=== PATIENT | female | born 1980 | race Caucasian/White ===

== ENCOUNTER 2016-09-23 22:44 | Emergency (ER) | payer OTHER | END 2016-09-24 00:43 | disposition home or self-care (01) | LOC: ER 22:44 | DX: B34.9 Viral infection, unspecified (principal); F17.210 Nicotine dependence, cigarettes, uncomplicated; Z88.0 Allergy status to penicillin; Z91.040 Latex allergy status; Z98.51 Tubal ligation status | CPT/HCPCS: 36415; 96374 ==

== ENCOUNTER 2016-10-12 04:05 | Emergency (ER) | payer OTHER | END 2016-10-12 05:00 | disposition home or self-care (01) | LOC: ER 04:05 | DX: R51 Headache (principal); F17.210 Nicotine dependence, cigarettes, uncomplicated; Z91.040 Latex allergy status; Z88.0 Allergy status to penicillin | CPT/HCPCS: 96372; J1885 ==

== ENCOUNTER 2016-10-13 02:06 | Emergency (ER) | payer OTHER | END 2016-10-13 03:00 | disposition home or self-care (01) | LOC: ER 02:06 | DX: R51 Headache (principal); F17.210 Nicotine dependence, cigarettes, uncomplicated; Z88.0 Allergy status to penicillin; Z91.040 Latex allergy status | CPT/HCPCS: 96372; J1885 ==

== ENCOUNTER 2016-10-27 21:43 | Emergency (ER) | payer OTHER | END 2016-10-27 22:10 | disposition home or self-care (01) | LOC: ER 21:43 | DX: R19.7 Diarrhea, unspecified (principal); R11.0 Nausea; G43.909 Migraine, unspecified, not intractable, without status migrainosus; F17.210 Nicotine dependence, cigarettes, uncomplicated; Z90.49 Acquired absence of other specified parts of digestive tract; Z98.51 Tubal ligation status; Z88.0 Allergy status to penicillin; Z91.040 Latex allergy status ==

== ENCOUNTER 2016-11-02 16:40 | Emergency (ER) | payer OTHER | END 2016-11-02 17:30 | disposition home or self-care (01) | LOC: ER 16:40 | DX: G43.909 Migraine, unspecified, not intractable, without status migrainosus (principal); Z90.49 Acquired absence of other specified parts of digestive tract; Z98.51 Tubal ligation status; Z91.040 Latex allergy status; Z88.0 Allergy status to penicillin | CPT/HCPCS: 96374; 96375; J1200; J1885; J2765 ==

== ENCOUNTER 2016-11-05 21:50 | Emergency (ER) | payer OTHER | END 2016-11-06 00:54 | disposition home or self-care (01) | LOC: ER 21:50 | DX: R10.9 Unspecified abdominal pain (principal); R11.0 Nausea; R05 Cough; G43.909 Migraine, unspecified, not intractable, without status migrainosus; F17.210 Nicotine dependence, cigarettes, uncomplicated; Z98.51 Tubal ligation status; Z04.9 Encounter for examination and observation for unspecified reason; Z88.0 Allergy status to penicillin; Z91.040 Latex allergy status | CPT/HCPCS: 36415; 96374; 96375; J1885 ==

== ENCOUNTER 2016-11-16 21:59 | Emergency (ER) | payer OTHER | END 2016-11-16 22:55 | disposition home or self-care (01) | LOC: ER 21:59 | DX: G43.109 Migraine with aura, not intractable, without status migrainosus (principal); F17.210 Nicotine dependence, cigarettes, uncomplicated; Z90.49 Acquired absence of other specified parts of digestive tract; Z98.51 Tubal ligation status; Z88.0 Allergy status to penicillin; Z91.040 Latex allergy status ==

== ENCOUNTER 2016-11-29 22:12 | Emergency (ER) | payer OTHER | END 2016-11-29 23:05 | disposition home or self-care (01) | LOC: ER 22:12 | DX: M62.830 Muscle spasm of back (principal); R35.0 Frequency of micturition; G43.909 Migraine, unspecified, not intractable, without status migrainosus; F17.210 Nicotine dependence, cigarettes, uncomplicated; Z98.51 Tubal ligation status; Z90.49 Acquired absence of other specified parts of digestive tract; Z88.0 Allergy status to penicillin; Z91.040 Latex allergy status ==

== ENCOUNTER 2016-12-13 14:33 | Emergency (ER) | payer OTHER | END 2016-12-13 16:00 | disposition home or self-care (01) | LOC: ER 14:33 | DX: M94.0 Chondrocostal junction syndrome [Tietze] (principal); G43.909 Migraine, unspecified, not intractable, without status migrainosus; E66.9 Obesity, unspecified; F41.9 Anxiety disorder, unspecified; F17.210 Nicotine dependence, cigarettes, uncomplicated; Z90.49 Acquired absence of other specified parts of digestive tract; Z98.51 Tubal ligation status; Z88.0 Allergy status to penicillin; Z91.040 Latex allergy status | CPT/HCPCS: 36415; 96361; 96374; J1885 ==

== ENCOUNTER 2016-12-25 01:27 | Emergency (ER) | payer OTHER | END 2016-12-25 02:54 | disposition home or self-care (01) | LOC: ER 01:27 | DX: G43.909 Migraine, unspecified, not intractable, without status migrainosus (principal); F17.210 Nicotine dependence, cigarettes, uncomplicated; Z98.51 Tubal ligation status; Z90.49 Acquired absence of other specified parts of digestive tract; Z88.0 Allergy status to penicillin; Z91.040 Latex allergy status | CPT/HCPCS: 96361; 96374; 96375; J1200; J1885; J2765 ==

== ENCOUNTER 2017-01-24 21:10 | Emergency (ER) | payer OTHER | END 2017-01-25 01:43 | disposition home or self-care (01) | LOC: ER 21:10 | DX: G43.909 Migraine, unspecified, not intractable, without status migrainosus (principal); F17.210 Nicotine dependence, cigarettes, uncomplicated; Z90.49 Acquired absence of other specified parts of digestive tract; Z98.51 Tubal ligation status; Z88.0 Allergy status to penicillin; Z91.040 Latex allergy status | CPT/HCPCS: 96361; 96374; 96375; J1100; J1885; J2765 ==